=== PATIENT | female | born 1940 | race Caucasian/White ===

== ENCOUNTER 2017-04-22 19:13 | Emergency (ER) | payer MEDICARE, BC ==
[2017-04-22 19:23] VITALS: BP 130/54
--- NOTE | 2017-04-22 19:42 | EDM.PDOC ---
ED HPI GENERAL MEDICAL PROBLEM - General Chief Complaint: Lower Extremity Injury/Pain Stated Complaint: fall, knee pain Time Seen by Provider: 04/22/17 19:16 Source of Information: Reports: Patient, EMS Notes Reviewed, Family, RN, RN Notes Reviewed History Limitations: Reports: No Limitations - History of Present Illness Onset: Today Onset Date: 04/22/17 Onset Time: 17:00 Duration: Constant Location: Reports: Lower Extremity, Right Quality: Reports: Throbbing Severity: Mild Improves with: Reports: Rest Worsens with: Reports: Movement Context: Reports: Trauma Associated Symptoms: Reports: No Other Symptoms Right Knee Pain Score (Numeric/FACES): 4 - Related Data Allergies Allergy/AdvReac Type Severity Reaction Status Date / Time Unable to Assess Allergy Unverified 04/22/17 19:23 Home Meds: Home Meds Acetaminophen [Tylenol] 650 mg PO Q4H PRN 12/20/14 [History] Aspirin [Halfprin] 81 mg PO DAILY 12/20/14 [History] Bisacodyl [Dulcolax] 1 - 2 tab PO DAILY PRN 12/20/14 [History] Calcium Carbonate [Tums] 500 mg PO Q4H PRN 12/20/14 [History] Cholecalciferol (Vitamin D3) [Vitamin D3] 2,000 unit PO DAILY 12/20/14 [History] Dicyclomine HCl [Bentyl] 20 mg PO BID 12/20/14 [History] Famotidine [Pepcid] 10 mg PO BID 12/20/14 [History] Famotidine [Pepcid] 20 mg PO BID 12/20/14 [History] Hydrocodone/Acetaminophen [Hydrocodon-Acetaminophen 5-325] 1 each PO Q4H PRN [History] Imipramine HCl 30 mg PO BEDTIME 12/20/14 [History] Levothyroxine Sodium [Levoxyl] 50 mcg PO DAILY 12/20/14 [History] Multivitamin with Minerals [Multiple Vitamin] 1 tab PO DAILY 12/20/14 [History] Polyethylene Glycol 3350 [MiraLAX] 17 gm PO DAILY PRN 12/20/14 [History] Simvastatin [Simvastatin] 40 mg PO DAILY 12/20/14 [History] Sodium Chloride 2% [Yazmin 128 2% Ophth Soln] 1 drop OP BID 12/20/14 [History] clonazePAM [Clonazepam] 1 mg PO BID 12/20/14 [History] Social & Family History - Tobacco Use Smoking Status *Q: Never Smoker - Alcohol Use Days Per Week of Alcohol Use: 0 - Recreational Drug Use Recreational Drug Use: No Review of Systems - Review of Systems Review Of Systems: See Below Constitutional: Denies: Chills, Fever Respiratory: Denies: Shortness of Breath, Cough Cardiovascular: Denies: Chest Pain, Palpitations Musculoskeletal: Reports: Leg Pain, Joint Pain, Joint Swelling Neurological: Reports: No Symptoms. Denies: Headache, Numbness, Paresthesia, Tingling ED EXAM, GENERAL - Physical Exam Exam: See Below Exam Limited By: No Limitations General Appearance: Alert, No Apparent Distress, Thin, Cachetic Head: Atraumatic, Normocephalic Neck: Supple Respiratory/Chest: No Respiratory Distress, Lungs Clear, Normal Breath Sounds Cardiovascular: Regular Rate, Rhythm Extremities: Joint Swelling, Leg Pain, Limited Range of Motion, Increased Warmth (Right Knee) Neurological: Alert, Oriented Skin Exam: Warm, Dry, Intact, No Rash Course - Vital Signs Last Recorded V/S: Last Vital Signs Temp 37.3 C 04/22/17 19:20 Pulse 98 04/22/17 19:20 Resp 18 04/22/17 19:20 BP 130/54 L 04/22/17 19:20 Pulse Ox 93 L 04/22/17 19:20 - Orders/Labs/Meds Orders: Active Orders 24 hr Category Date Time Status Knee 3V Rt [CR] Stat Exams 04/22/17 19:25 Taken Departure - Departure Time of Disposition: 20:17 Disposition: Home, Self-Care 01 Condition: Fair Clinical Impression: Right knee pain Qualifiers: Chronicity: chronic Qualified Code(s): M25.561 - Pain in right knee; G89.29 - Other chronic pain Injury of right knee Qualifiers: Encounter type: initial encounter Qualified Code(s): S89.91XA - Unspecified injury of right lower leg, initial encounter Fall Qualifiers: Encounter type: initial encounter Qualified Code(s): W19.XXXA - Unspecified fall, initial encounter Right knee sprain Qualifiers: Encounter type: initial encounter Involved ligament of knee: unspecified ligament Qualified Code(s): S83.91XA - Sprain of unspecified site of right knee , initial encounter - Discharge Information Instructions: Knee Pain, Knee Sprain Referrals: Lacy Mann, [Primary Care Provider] - Forms: ED Department Discharge Additional Instructions: 1. Stay well hydrated and rest 2. May take Tylenol for pain 3. See Dr. Mann in clinic this next week to make sure everything is going ok 4. Wear CINDY wrap at all times 5. Ice and elevate right knee to help with pain ED Communication - ED Communication Date/Time Date: 04/22/17 Time Called: 20:17 - Discussed Case With (1) Discussed Case With (1): Patient, Pt's POA/Guardian - Conversation Summary Patient Aware of Amendments fo Care Plan: Yes Patient's POA/Guardian Aware of Amendments to Care Plan: Yes - Problem List Review Problem List Initiated/Reviewed/Updated: Yes - My Orders Last 24 Hours: My Active Orders 04/22/17 19:25 Knee 3V Rt [CR] Stat - Assessment/Plan Last 24 Hours: My Active Orders 04/22/17 19:25 Knee 3V Rt [CR] Stat
== END 2017-04-22 20:25 | disposition home or self-care (01) ==
LOC: VM.ED 19:13
DX: S83.91XA Sprain of unspecified site of right knee, initial encounter (principal); Z79.82 Long term (current) use of aspirin; Z79.899 Other long term (current) drug therapy; W19.XXXA Unspecified fall, initial encounter
CPT/HCPCS: 73562-RT; 99282-GF; 99284

== ENCOUNTER 2017-07-11 21:24 | Emergency (ER) | payer MEDICARE, BC ==
[2017-07-11] MEDS ORDERED: Sodium Chloride 0.9% 10 ML Syringe FLUSH PRN (21:50)
[2017-07-11] MEDS ORDERED: Sodium Chloride 0.9% 1,000 ML IV ONE (21:50)
--- NOTE | 2017-07-11 22:25 | EDM.PDOC ---
ED HPI GENERAL MEDICAL PROBLEM - General Chief Complaint: Lower Extremity Injury/Pain Stated Complaint: fall, right hip/leg pain Time Seen by Provider: 07/11/17 21:31 Source of Information: Reports: Patient, EMS Notes Reviewed, Family, RN, RN Notes Reviewed History Limitations: Reports: No Limitations - History of Present Illness INITIAL COMMENTS - FREE TEXT/NARRATIVE: Patient is brought to the emergency room at [facility] via EMS after she sustained a fall at home. According to the EMS crew it is unclear how the patient fell. The patient was found on the ground when they arrived. The patient complains of right knee pain. The patient denies hitting her head. The patient denies any LOC. The patient did get somewhat nauseated enroute so she was given 4 mg of IV Zofran. Onset: Today Onset Date: 07/11/17 Duration: Getting Worse Location: Reports: Lower Extremity, Right Quality: Reports: Throbbing Severity: Moderate Context: Reports: Trauma Associated Symptoms: Reports: Nausea/Vomiting Treatments [employer]: Reports: See EMS Report, Other (see below) Other Treatments [employer]: zofran 4 mg IV - Related Data Allergies Allergy/AdvReac Type Severity Reaction Status Date / Time fentanyl Allergy Other Verified 07/11/17 21:54 furosemide [From Lasix] Allergy Hives Verified 07/11/17 21:54 mirtazapine [From Remeron] Allergy Other Verified 07/11/17 21:54 nalbuphine [From Nubain] Allergy Nausea and Verified 07/11/17 21:54 Vomiting Home Meds: Home Meds Acetaminophen [Tylenol] 1 - 2 tab PO Q4H PRN 12/20/14 [History] Aspirin [Halfprin] 81 mg PO DAILY 12/20/14 [History] Bisacodyl [Dulcolax] 1 - 2 tab PO DAILY PRN 12/20/14 [History] Calcium Carbonate [Tums] 500 mg PO QID PRN 12/20/14 [History] Cholecalciferol (Vitamin D3) [Vitamin D3] 2,000 unit PO DAILY 12/20/14 [History] Dicyclomine HCl [Bentyl] 20 mg PO BID 12/20/14 [History] Imipramine HCl 30 mg PO BEDTIME 12/20/14 [History] Levothyroxine Sodium [Levoxyl] 50 mcg PO DAILY 12/20/14 [History] Multivitamin with Minerals [Multiple Vitamin] 1 tab PO DAILY 12/20/14 [History] Polyethylene Glycol 3350 [MiraLAX] 17 gm PO DAILY PRN 12/20/14 [History] Simvastatin [Simvastatin] 40 mg PO DAILY 12/20/14 [History] Sodium Chloride 2% [Yazmin 128 2% Ophth Soln] 1 drop OP TID 12/20/14 [History] clonazePAM [Clonazepam] 1 mg PO BID 12/20/14 [History] Cyanocobalamin (Vitamin B-12) [Cyanocobalamin Injection] 1,000 mcg IJ ASDIRECTED 07/12/17 [History] Famotidine 30 mg PO BID 07/12/17 [History] Ferrous Sulfate 325 mg PO DAILY 07/12/17 [History] Propylene Glycol/PEG 400/Pf [Systane Ultra 0.4-0.3% Eye Drp] 1 - 2 drop EYEBOTH DAILY 07/12/17 [History] chlordiazePOXIDE/Clidinium [Librax 5-2.5 MG] 1 cap PO QID 07/12/17 [History] Past Medical History HEENT History: Reports: Allergic Rhinitis, Macular Degeneration Cardiovascular History: Reports: Heart Failure Gastrointestinal History: Reports: Gastritis, Inflammatory Bowel Disease, Other (See Below) Musculoskeletal History: Reports: Back Pain, Chronic, Osteoporosis, Other (See Below) Other Musculoskeletal History: left hip fracture Neurological History: Reports: Other (See Below) Other Neuro History: acute ischemic stroke Psychiatric History: Reports: Anxiety, Depression Endocrine/Metabolic History: Reports: Hypothyroidism Hematologic History: Reports: Anemia - Past Surgical History GI Surgical History: Reports: Hernia Repair/Other Social & Family History - Family History Family Medical History: Noncontributory - Tobacco Use Smoking Status *Q: Unknown Ever Smoked - Alcohol Use Days Per Week of Alcohol Use: 0 - Recreational Drug Use Recreational Drug Use: No Review of Systems - Review of Systems Review Of Systems: See Below Constitutional: Denies: Chills, Fever Eyes: Reports: No Symptoms Ears: Reports: No Symptoms Nose: Reports: No Symptoms Mouth/Throat: Reports: No Symptoms Respiratory: Denies: Shortness of Breath, Cough Cardiovascular: Denies: Chest Pain, Lightheadedness, Palpitations Musculoskeletal: Reports: Joint Pain, Muscle Pain, Muscle Stiffness, Other ( right knee pain) Skin: Reports: No Symptoms Neurological: Reports: No Symptoms. Denies: Headache, Numbness, Paresthesia, Tingling ED EXAM, GENERAL - Physical Exam Exam: See Below Exam Limited By: No Limitations General Appearance: Alert, No Apparent Distress, Thin, Cachetic Eye Exam: Bilateral Eye: EOMI, Normal Inspection, PERRL Ears: Normal External Exam, Normal Canal, Normal TMs Ear Exam: Bilateral Ear: TM normal Nose: Normal Inspection, Normal Mucosa, No Blood Throat/Mouth: Normal Inspection, Normal Oropharynx, No Airway Compromise Head: Atraumatic, Normocephalic Neck: Supple Respiratory/Chest: No Respiratory Distress, Lungs Clear, Normal Breath Sounds Cardiovascular: Normal Peripheral Pulses, Regular Rate, Rhythm, No Edema Peripheral Pulses: 2+: Radial (L), Radial (R) Extremities: Normal Inspection, Limited Range of Motion (Right knee), Increased Warmth, Redness Neurological: Alert, Oriented Skin Exam: Warm, Dry, Intact, Normal Color, No Rash EKG INTERPRETATION EKG Date: 07/11/17 Time: 22:20 Rhythm: NSR Rate (Beats/Min): 95 [place]: LAD-Left [place] Deviation P-Wave: Present QRS: Normal ST-T: Normal QT: Normal [place]/PQ Interval: 0.16 Comparison: NA - No Prior EKG EKG Interpretation Comments: 1. Sinus Rhythm with occasional ventricular premature complexes 2. Borderline Left [place] deviation (QRS [place] < -20) 3. Possible Right Ventricular Conduction delay 4. Nonspecific ST & T-wave abnormality 5. Borderline ECG Course - Vital Signs Last Recorded V/S: Last Vital Signs Temp 36.8 C 07/12/17 01:30 Pulse 101 H 07/12/17 00:48 Resp 22 H 07/12/17 02:29 BP 115/77 07/12/17 02:29 Pulse Ox 94 L 07/12/17 02:29 - Orders/Labs/Meds Orders: Active Orders 24 hr Category Date Time Status BIPAP Adult [RT BiPAP/CPAP] [RC] ASDIRECTED Care 07/12/17 01:05 Active EKG 12 Lead [EKG Documentation Completion] [RC] STAT Care 07/11/17 22:17 Active Glucose [Blood Glucose Check, Bedside] [RC] ONETIME Care 07/11/17 22:18 Active Insert Urinary Catheter [OM.PC] Q24H Care 07/11/17 22:00 Ordered Oxygen Therapy, ED [RC] ASDIRECTED Care 07/11/17 22:05 Active Urinary Catheter Assessment [RC] ASDIRECTED Care 07/11/17 21:49 Active Ang Chest [CT] Stat Exams 07/11/17 22:45 Taken Head wo Cont [CT] Stat Exams 07/11/17 22:16 Taken Knee 1V or 2V Rt [CR] Stat Exams 07/11/17 21:34 Taken Sodium Chloride 0.9% [Normal Saline] 1,000 ml Med 07/12/17 00:31 Active IV ONETIME Sodium Chloride 0.9% [Saline Flush] Med 07/11/17 21:50 Active 10 ml FLUSH ASDIRECTED PRN Peripheral IV Insertion Adult [OM.PC] Routine Oth 07/11/17 21:50 Ordered Medication Orders Sodium Chloride (Normal Saline) 1,000 mls @ 30 mls/hr IV ONETIME ONE Stop: 07/13/17 09:50 Last Admin: 07/11/17 23:15 Dose: 30 mls/hr Sodium Chloride (Saline Flush) 10 ml FLUSH ASDIRECTED PRN PRN Reason: Keep Vein Open Labs: Laboratory Tests 07/11/17 07/11/17 07/11/17 Range/Units 21:45 21:45 22:00 WBC 15.2 H (4.0-10.0) x10^3/uL RBC 3.71 L (4.00-5.50) x10^6/uL Hgb 11.7 L (12.0-16.0) g/dL Hct 35.1 (33.0-47.0) % MCV 94.6 H (78.0-93.0) fL MCH 31.5 (26.0-32.0) pg MCHC 33.3 (32.0-36.0) g/dL RDW Coeff of Dave 13.6 (10.0-15.0) % Plt Count 180 (130-400) x10^3/uL Neut % (Auto) 89.1 H (50.0-80.0) % Lymph % (Auto) 6.2 L (25.0-50.0) % [place] % (Auto) 4.5 (2.0-11.0) % Eos % (Auto) 0.1 (0.0-4.0) % Baso % (Auto) 0.1 L (0.2-1.2) % PT (9.8-11.8) SEC INR (2.0-3.5) D-Dimer, Quantitative (<=0.58) mg/LFEU POC ABG pH ABG pH (7.35-7.45) POC ABG pCO2 ABG pCO2 (35-45) mmHG POC ABG pO2 ABG pO2 (80-105) mmHG POC ABG HCO3 ABG HCO3 (22-26) mmol/L POC ABG Total CO2 ABG Total CO2 (23-27) mmol/L POC ABG O2 Sat ABG O2 Content (95-98) % POC ABG Base Excess ABG Base Excess (-2-3) mmol/L POC VBG pH POC VBG pCO2 POC VBG pO2 POC VBG HCO3 POC VBG Total CO2 POC VBG Base Excess O2 Delivery Device Oxygen Flow Rate L/min POC O2 Flow Rate FiO2 POC FiO2 Sodium (136-145) mmol/L Potassium (3.5-5.1) mmol/L Chloride (98-107) mmol/L Carbon Dioxide (21-32) mmol/L BUN (7-18) mg/dL Creatinine (0.55-1.02) mg/dL Est Cr Clr Drug Dosing Estimated GFR (MDRD) Glucose (74-106) mg/dL Lactic Acid (0.4-2.0) mmol/L Calcium (8.5-10.1) mg/dL Creatine Kinase (26-192) U/L Creatine Kinase Index (0.0-4.0) % CK-MB (CK-2) (0.0-3.6) ng/mL Troponin I (<=0.056) ng/mL C-Reactive Protein (<=0.9) mg/dL NT-Pro-B Natriuret Pep (<=450) pg/mL Urine Color Yellow (YELLOW) Urine Appearance Slightly cloudy H (CLEAR) Urine pH 6.5 (5.0-8.0) Ur Specific [place] 1.010 Urine Protein Negative (NEGATIVE) mg/dL Urine Glucose (UA) Negative (NEGATIVE) mg/dL Urine Ketones Negative (NEGATIVE) mg/dL Urine Occult Blood Negative (NEGATIVE) Urine Nitrite Negative (NEGATIVE) Urine Bilirubin Negative (NEGATIVE) Urine Urobilinogen 0.2 (0.2) EU/dL Ur Leukocyte Esterase Negative (NEGATIVE) Urine RBC 0-5 (NOT SEEN) /HPF Urine WBC 0-5 (NOT SEEN) /HPF Ur Transition Epith Cell Occasional H (NEGATIVE) /HPF Amorphous Sediment Rare Urine Bacteria Rare (NEGATIVE) /HPF Urine Mucus Few H (NEGATIVE) /LPF Urine Opiates Screen Negative (NEGATIVE) Ur Buprenorphine Scrn Negative (NEGATIVE) Ur Oxycodone Screen Negative (NEGATIVE) Urine Methadone Screen Negative (NEGATIVE) Ur Barbiturates Screen Negative (NEGATIVE) Ur Tricyclics Screen Positive H (NEGATIVE) Ur Amphetamine Screen Negative (NEGATIVE) U Methamphetamines Scrn Negative (NEGATIVE) Urine MDMA Screen Negative (NEGATIVE) U Benzodiazepines Scrn Positive H (NEGATIVE) U Cocaine Metab Screen Negative (NEGATIVE) U Marijuana (THC) Screen Negative (NEGATIVE) 07/11/17 07/11/17 07/11/17 Range/Units 22:00 22:00 22:00 WBC (4.0-10.0) x10^3/uL RBC (4.00-5.50) x10^6/uL Hgb (12.0-16.0) g/dL Hct (33.0-47.0) % MCV (78.0-93.0) fL MCH (26.0-32.0) pg MCHC (32.0-36.0) g/dL RDW Coeff of Dave (10.0-15.0) % Plt Count (130-400) x10^3/uL Neut % (Auto) (50.0-80.0) % Lymph % (Auto) (25.0-50.0) % [place] % (Auto) (2.0-11.0) % Eos % (Auto) (0.0-4.0) % Baso % (Auto) (0.2-1.2) % PT 10.6 (9.8-11.8) SEC INR 1.0 L (2.0-3.5) D-Dimer, Quantitative > 35.20 H (<=0.58) mg/LFEU POC ABG pH ABG pH (7.35-7.45) POC ABG pCO2 ABG pCO2 (35-45) mmHG POC ABG pO2 ABG pO2 (80-105) mmHG POC ABG HCO3 ABG HCO3 (22-26) mmol/L POC ABG Total CO2 ABG Total CO2 (23-27) mmol/L POC ABG O2 Sat ABG O2 Content (95-98) % POC ABG Base Excess ABG Base Excess (-2-3) mmol/L POC VBG pH POC VBG pCO2 POC VBG pO2 POC VBG HCO3 POC VBG Total CO2 POC VBG Base Excess O2 Delivery Device Oxygen Flow Rate L/min POC O2 Flow Rate FiO2 POC FiO2 Sodium 129 L* (136-145) mmol/L Potassium 3.4 L (3.5-5.1) mmol/L Chloride 94 L (98-107) mmol/L Carbon Dioxide 27 (21-32) mmol/L BUN 15 (7-18) mg/dL Creatinine 1.0 (0.55-1.02) mg/dL Est Cr Clr Drug Dosing TNP Estimated GFR (MDRD) 53 Glucose 146 H (74-106) mg/dL Lactic Acid (0.4-2.0) mmol/L Calcium 8.3 L (8.5-10.1) mg/dL Creatine Kinase 57 (26-192) U/L Creatine Kinase Index 0.9 (0.0-4.0) % CK-MB (CK-2) < 0.5 (0.0-3.6) ng/mL Troponin I 0.081 H* (<=0.056) ng/mL C-Reactive Protein 4.1 H (<=0.9) mg/dL NT-Pro-B Natriuret Pep (<=450) pg/mL Urine Color (YELLOW) Urine Appearance (CLEAR) Urine pH (5.0-8.0) Ur Specific [place] Urine Protein (NEGATIVE) mg/dL Urine Glucose (UA) (NEGATIVE) mg/dL Urine Ketones (NEGATIVE) mg/dL Urine Occult Blood (NEGATIVE) Urine Nitrite (NEGATIVE) Urine Bilirubin (NEGATIVE) Urine Urobilinogen (0.2) EU/dL Ur Leukocyte Esterase (NEGATIVE) Urine RBC (NOT SEEN) /HPF Urine WBC (NOT SEEN) /HPF Ur Transition Epith Cell (NEGATIVE) /HPF Amorphous Sediment Urine Bacteria (NEGATIVE) /HPF Urine Mucus (NEGATIVE) /LPF Urine Opiates Screen (NEGATIVE) Ur Buprenorphine Scrn (NEGATIVE) Ur Oxycodone Screen (NEGATIVE) Urine Methadone Screen (NEGATIVE) Ur Barbiturates Screen (NEGATIVE) Ur Tricyclics Screen (NEGATIVE) Ur Amphetamine Screen (NEGATIVE) U Methamphetamines Scrn (NEGATIVE) Urine MDMA Screen (NEGATIVE) U Benzodiazepines Scrn (NEGATIVE) U Cocaine Metab Screen (NEGATIVE) U Marijuana (THC) Screen (NEGATIVE) 07/11/17 07/11/17 07/11/17 Range/Units 22:00 22:05 22:15 WBC (4.0-10.0) x10^3/uL RBC (4.00-5.50) x10^6/uL Hgb (12.0-16.0) g/dL Hct (33.0-47.0) % MCV (78.0-93.0) fL MCH (26.0-32.0) pg MCHC (32.0-36.0) g/dL RDW Coeff of Dave (10.0-15.0) % Plt Count (130-400) x10^3/uL Neut % (Auto) (50.0-80.0) % Lymph % (Auto) (25.0-50.0) % [place] % (Auto) (2.0-11.0) % Eos % (Auto) (0.0-4.0) % Baso % (Auto) (0.2-1.2) % PT (9.8-11.8) SEC INR (2.0-3.5) D-Dimer, Quantitative (<=0.58) mg/LFEU POC ABG pH ABG pH 7.54 H (7.35-7.45) POC ABG pCO2 ABG pCO2 25 L (35-45) mmHG POC ABG pO2 ABG pO2 101 (80-105) mmHG POC ABG HCO3 ABG HCO3 21 L (22-26) mmol/L POC ABG Total CO2 ABG Total CO2 22 L (23-27) mmol/L POC ABG O2 Sat ABG O2 Content 99 H (95-98) % POC ABG Base Excess ABG Base Excess -2 (-2-3) mmol/L POC VBG pH POC VBG pCO2 POC VBG pO2 POC VBG HCO3 POC VBG Total CO2 POC VBG Base Excess O2 Delivery Device Oxygen Flow Rate 15 L/min POC O2 Flow Rate FiO2 0.75 POC FiO2 Sodium (136-145) mmol/L Potassium (3.5-5.1) mmol/L Chloride (98-107) mmol/L Carbon Dioxide (21-32) mmol/L BUN (7-18) mg/dL Creatinine (0.55-1.02) mg/dL Est Cr Clr Drug Dosing Estimated GFR (MDRD) Glucose (74-106) mg/dL Lactic Acid 1.8 (0.4-2.0) mmol/L Calcium (8.5-10.1) mg/dL Creatine Kinase (26-192) U/L Creatine Kinase Index (0.0-4.0) % CK-MB (CK-2) (0.0-3.6) ng/mL Troponin I (<=0.056) ng/mL C-Reactive Protein (<=0.9) mg/dL NT-Pro-B Natriuret Pep 504 H (<=450) pg/mL Urine Color (YELLOW) Urine Appearance (CLEAR) Urine pH (5.0-8.0) Ur Specific [place] Urine Protein (NEGATIVE) mg/dL Urine Glucose (UA) (NEGATIVE) mg/dL Urine Ketones (NEGATIVE) mg/dL Urine Occult Blood (NEGATIVE) Urine Nitrite (NEGATIVE) Urine Bilirubin (NEGATIVE) Urine Urobilinogen (0.2) EU/dL Ur Leukocyte Esterase (NEGATIVE) Urine RBC (NOT SEEN) /HPF Urine WBC (NOT SEEN) /HPF Ur Transition Epith Cell (NEGATIVE) /HPF Amorphous Sediment Urine Bacteria (NEGATIVE) /HPF Urine Mucus (NEGATIVE) /LPF Urine Opiates Screen (NEGATIVE) Ur Buprenorphine Scrn (NEGATIVE) Ur Oxycodone Screen (NEGATIVE) Urine Methadone Screen (NEGATIVE) Ur Barbiturates Screen (NEGATIVE) Ur Tricyclics Screen (NEGATIVE) Ur Amphetamine Screen (NEGATIVE) U Methamphetamines Scrn (NEGATIVE) Urine MDMA Screen (NEGATIVE) U Benzodiazepines Scrn (NEGATIVE) U Cocaine Metab Screen (NEGATIVE) U Marijuana (THC) Screen (NEGATIVE) 07/11/17 07/12/17 Range/Units 22:15 02:54 WBC (4.0-10.0) x10^3/uL RBC (4.00-5.50) x10^6/uL Hgb (12.0-16.0) g/dL Hct (33.0-47.0) % MCV (78.0-93.0) fL MCH (26.0-32.0) pg MCHC (32.0-36.0) g/dL RDW Coeff of Dave (10.0-15.0) % Plt Count (130-400) x10^3/uL Neut % (Auto) (50.0-80.0) % Lymph % (Auto) (25.0-50.0) % [place] % (Auto) (2.0-11.0) % Eos % (Auto) (0.0-4.0) % Baso % (Auto) (0.2-1.2) % PT (9.8-11.8) SEC INR (2.0-3.5) D-Dimer, Quantitative (<=0.58) mg/LFEU POC ABG pH Cancelled 7.376 ABG pH (7.35-7.45) POC ABG pCO2 Cancelled 35 ABG pCO2 (35-45) mmHG POC ABG pO2 Cancelled 84 ABG pO2 (80-105) mmHG POC ABG HCO3 Cancelled 20 L ABG HCO3 (22-26) mmol/L POC ABG Total CO2 Cancelled 21 L ABG Total CO2 (23-27) mmol/L POC ABG O2 Sat Cancelled 96 ABG O2 Content (95-98) % POC ABG Base Excess Cancelled -5 L ABG Base Excess (-2-3) mmol/L POC VBG pH Cancelled POC VBG pCO2 Cancelled POC VBG pO2 Cancelled POC VBG HCO3 Cancelled POC VBG Total CO2 Cancelled POC VBG Base Excess Cancelled O2 Delivery Device Cancelled Oxygen Flow Rate L/min POC O2 Flow Rate Cancelled FiO2 POC FiO2 Cancelled 0.50 Sodium (136-145) mmol/L Potassium (3.5-5.1) mmol/L Chloride (98-107) mmol/L Carbon Dioxide (21-32) mmol/L BUN (7-18) mg/dL Creatinine (0.55-1.02) mg/dL Est Cr Clr Drug Dosing Estimated GFR (MDRD) Glucose (74-106) mg/dL Lactic Acid (0.4-2.0) mmol/L Calcium (8.5-10.1) mg/dL Creatine Kinase (26-192) U/L Creatine Kinase Index (0.0-4.0) % CK-MB (CK-2) (0.0-3.6) ng/mL Troponin I (<=0.056) ng/mL C-Reactive Protein (<=0.9) mg/dL NT-Pro-B Natriuret Pep (<=450) pg/mL Urine Color (YELLOW) Urine Appearance (CLEAR) Urine pH (5.0-8.0) Ur Specific [place] Urine Protein (NEGATIVE) mg/dL Urine Glucose (UA) (NEGATIVE) mg/dL Urine Ketones (NEGATIVE) mg/dL Urine Occult Blood (NEGATIVE) Urine Nitrite (NEGATIVE) Urine Bilirubin (NEGATIVE) Urine Urobilinogen (0.2) EU/dL Ur Leukocyte Esterase (NEGATIVE) Urine RBC (NOT SEEN) /HPF Urine WBC (NOT SEEN) /HPF Ur Transition Epith Cell (NEGATIVE) /HPF Amorphous Sediment Urine Bacteria (NEGATIVE) /HPF Urine Mucus (NEGATIVE) /LPF Urine Opiates Screen (NEGATIVE) Ur Buprenorphine Scrn (NEGATIVE) Ur Oxycodone Screen (NEGATIVE) Urine Methadone Screen (NEGATIVE) Ur Barbiturates Screen (NEGATIVE) Ur Tricyclics Screen (NEGATIVE) Ur Amphetamine Screen (NEGATIVE) U Methamphetamines Scrn (NEGATIVE) Urine MDMA Screen (NEGATIVE) U Benzodiazepines Scrn (NEGATIVE) U Cocaine Metab Screen (NEGATIVE) U Marijuana (THC) Screen (NEGATIVE) Meds: Medications Generic Name Dose Route Start Last Admin Trade Name Freq PRN Reason Stop Dose Admin Sodium Chloride 1,000 mls @ 30 mls/hr 07/12/17 00:31 07/11/17 23:15 Normal Saline IV 07/13/17 09:50 30 mls/hr ONETIME ONE Administration Sodium Chloride 10 ml 07/11/17 21:50 Saline Flush FLUSH ASDIRECTED PRN Keep Vein Open Discontinued Medications Generic Name Dose Route Start Last Admin Trade Name Freq PRN Reason Stop Dose Admin Sodium Chloride 1,000 mls @ 999 mls/hr 07/11/17 21:50 07/11/17 22:08 Normal Saline IV 07/11/17 22:50 999 mls/hr ONETIME ONE Administration Sodium Chloride 100 mls @ 3 mls/sec 07/11/17 23:42 07/11/17 23:46 Normal Saline IV 07/11/17 23:43 3 mls/sec ONETIME ONE Administration Iopamidol 100 ml 07/11/17 23:42 07/11/17 23:46 Isovue-300 (61%) IVPUSH 07/11/17 23:43 100 ml ONETIME ONE Administration - Radiology Interpretation Free Text/Narrative:: CT Head: No acute intracranial findings - see scanned report in EMR CT Angio Chest: NO PE; bilateral infiltrates - see scanned report in EMR CT Results Date: 07/12/17 CT Results Time: 00:01 - Re-Assessments/Exams Free Text/Narrative Re-Assessment/Exam: 07/11/17 22:05 Patient re-assessed for new onset of altered mental status, minimal responsiveness. Patients skin dusky with blue around lips. Pulse faint and difficult to palpate. Sternal rub was tried without much response. Additional labs drawn. EKG obtained. 15L NRB applied for hypoxia; blood pressure low 70's, fluid resuscitation initiated. No loss of heartbeat. No respiratory failure. 07/11/2017 22:20 Fluid resuscitation successful with blood pressures elevated to 110's. HR remains stable. Patient more alert, but still lethargic. Daughter at bedside. 07/11/2017 22:[address] scan for head and angio of chest to r/o PE - awaiting results 07/11/2017 23:[address] scan; patient not cooperative, pulling at NRB mask, pulling off POX monitor from finger; patient more alert but confused Free Text/Narrative Re-Assessment/Exam: 07/12/17 00:[address] Lopez. This specification writer misunderstood that Dr. Lopez wanted patient to be on BiPAP in ER and gases recheck, versus, patient being admitted to this facility. BiPAP will be trialed for one hour and ABG's will be rechecked. Free Text/Narrative Re-Assessment/Exam: 07/12/17 02:09 Patient now on BiPAP resting comfortably on ER cot. Patient minimally responsive. Blood pressures are labile. Sats drop with decrease of O2. Patient withdrawals to pain and sternal rub. Will recheck ABG in 10 minutes. Daughter currently at bedside and given updates on patient condition. 07/12/17 03:06 Discussed repeat ABG's with Dr. Lopez. Patient will be admitted to the ICU [facility]. Patient will be send via ALS ground. Update given. Departure - Departure Time of Disposition: 03:08 Disposition: DC/Tfer to Acute Hospital 02 Condition: Fair Clinical Impression: Acute respiratory failure with hypoxia Hypotension Qualifiers: Hypotension type: unspecified hypotension type Qualified Code(s): I95.9 - Hypotension, unspecified Leukocytosis Qualifiers: Leukocytosis type: unspecified Qualified Code(s): D72.829 - Elevated white blood cell count, unspecified - Discharge Information Forms: Interfacility Transfer [facility] ED Communication - ED Communication Date/Time Date: 07/12/17 Time Called: 00:26 - Discussed Case With (1) Discussed Case With (1): Admitting Provider (Dr. Lopez, Hospitalist. Case discussed. Recommended keeping patient here on BiPAP and recheck ABG's. Stated will talk to our admitting provider.), Other (Case discussed with Dr. Wilder; recommended sending patient to [place].) - Conversation Summary Admitting Provider Agreed to Patient's Admission: Yes Patient Aware of Amendments fo Care Plan: Yes Patient's POA/Guardian Aware of Amendments to Care Plan: Yes - Problem List Review Problem List Initiated/Reviewed/Updated: Yes - My Orders Last 24 Hours: My Active Orders 07/11/17 21:34 Knee 1V or 2V Rt [CR] Stat 07/11/17 21:49 Urinary Catheter Assessment [RC] ASDIRECTED 07/11/17 21:50 Sodium Chloride 0.9% [Saline Flush] 10 ml FLUSH ASDIRECTED PRN Peripheral IV Insertion Adult [OM.PC] Routine 07/11/17 22:00 Insert Urinary Catheter [OM.PC] Q24H 07/11/17 22:05 Oxygen Therapy, ED [RC] ASDIRECTED 07/11/17 22:16 Head wo Cont [CT] Stat 07/11/17 22:17 EKG 12 Lead [EKG Documentation Completion] [RC] STAT 07/11/17 22:18 Glucose [Blood Glucose Check, Bedside] [RC] ONETIME 07/11/17 22:45 Ang Chest [CT] Stat 07/12/17 00:31 Sodium Chloride 0.9% [Normal Saline] 1,000 ml IV ONETIME 07/12/17 01:05 BIPAP Adult [RT BiPAP/CPAP] [RC] ASDIRECTED - Assessment/Plan Last 24 Hours: My Active Orders 07/11/17 21:34 Knee 1V or 2V Rt [CR] Stat 07/11/17 21:49 Urinary Catheter Assessment [RC] ASDIRECTED 07/11/17 21:50 Sodium Chloride 0.9% [Saline Flush] 10 ml FLUSH ASDIRECTED PRN Peripheral IV Insertion Adult [OM.PC] Routine 07/11/17 22:00 Insert Urinary Catheter [OM.PC] Q24H 07/11/17 22:05 Oxygen Therapy, ED [RC] ASDIRECTED 07/11/17 22:16 Head wo Cont [CT] Stat 07/11/17 22:17 EKG 12 Lead [EKG Documentation Completion] [RC] STAT 07/11/17 22:18 Glucose [Blood Glucose Check, Bedside] [RC] ONETIME 07/11/17 22:45 Ang Chest [CT] Stat 07/12/17 00:31 Sodium Chloride 0.9% [Normal Saline] 1,000 ml IV ONETIME 07/12/17 01:05 BIPAP Adult [RT BiPAP/CPAP] [RC] ASDIRECTED
[2017-07-11 22:27] LABS: PCO2 ARTERIAL 25 mmHG (35-45); PO2 ARTERIAL 101 mmHG (80-105)
[2017-07-11 22:28] LABS: BASE EXCESS ARTERIAL -2 mmol/L (-2-3); BICARBONATE,ARTERIAL 21 mmol/L (22-26)
[2017-07-11 22:29] LABS: O2 FLOW RATE 15 L/min
[2017-07-11 22:51] LABS: CHLORIDE,CL 94 mmol/L (98-107); SODIUM,NA 129 mmol/L (136-145)
[2017-07-11] MEDS ORDERED: Iopamidol 612 MG/ML 100 ML Bottle IVPUSH ONE (23:42)
[2017-07-11] MEDS ORDERED: Sodium Chloride 0.9% 100 ML IV ONE (23:42)
[2017-07-12] MEDS ORDERED: Sodium Chloride 0.9% 1,000 ML IV ONE (00:31)
[2017-07-12] MEDS ORDERED: Piperacillin/Tazobactam 4.5 GM in Sodium Chloride 0.9% 100 ML IV ONE (03:07)
[2017-07-12 04:13] VITALS: BP 125/77
== END 2017-07-12 03:50 | disposition short-term general hospital (02) ==
LOC: VM.ED 21:24
DX: J96.01 Acute respiratory failure with hypoxia (principal); I95.9 Hypotension, unspecified; D72.829 Elevated white blood cell count, unspecified; M81.0 Age-related osteoporosis without current pathological fracture; D64.9 Anemia, unspecified; E03.9 Hypothyroidism, unspecified; F41.9 Anxiety disorder, unspecified; F32.9 Major depressive disorder, single episode, unspecified; I50.9 Heart failure, unspecified; Z88.8 Allergy status to other drugs, medicaments and biological substances; Z79.899 Other long term (current) drug therapy; Z79.82 Long term (current) use of aspirin
CPT/HCPCS: 36415; 36600; 70450; 71275; 73560; 80048; 80305; 81001; 82550; 82553; 82803; 82962; 83605; 83880; 84484; 85025; 85379; 85610; 86140; 93005; 94660; 96361; 96365; 99291; 99292; J2543; J7030; J7050; Q9967; 99285-GF